=== PATIENT | female | born 1990 | race Caucasian/White ===

== ENCOUNTER 2022-05-17 11:38 | Emergency (ER) | payer BC, SELFPAY ==
[2022-05-17 11:43] VITALS: BP 154/101; PULSE 82; RESP 13; TEMP 36.9; O2SAT 98; BMI 36.6
--- NOTE | 2022-05-17 12:53 | ED_ITS ---
HPI - Headache General: Chief Complaint: Headache Stated Complaint: headache Time Seen by Provider: 05/17/22 12:53 History of Present Illness: 32-year-old female comes in today for complaints of a persistent headache on the right side of her head behind her right eye for the last 2 weeks. Patient reports last 2 days she has had worsening discomfort with nausea. Patient states that she has had no prior history of migraine headaches occasional headaches that have been controlled with [id number] medicines. Patient reports that acetaminophen PM has been the most effective f or her pain. Excedrin Migraine do not touch it this time. Patient recently gave about 8 months ago. Patient denies any chronic medical problems or routine medications. Patient appears nontoxic. Patient appears in mild to no pain. Associated symptoms: Reports nausea; Deny chest pain, fever(s), rash or vomiting Review of Systems Const: Denies: fever(s) Eyes: Reports: blurry vision (Right ); Denies: eye discomfort, eye discharge or eye redness ENMT: Denies: throat pain Card: Denies: chest pain Resp: Denies: dyspnea GI: Reports: nausea; Denies: vomiting, diarrhea or constipation : Denies: flank pain or difficulty voiding Musc: Denies: neck pain or back pain Skin/Breast: Denies: rash Neuro: Reports: headache(s); Denies: dizziness or vertigo Psych: Denies: depression [facility] ED PFSH: Social History (Updated 09/22/19 @ 11:55 by Norma Ramsay LPN) Smoking and tobacco status: never smoked Alcohol intake: never Adopted: No Physical Exam Const: COMMON NORMALS: alert HENMT: COMMON NORMALS: normocephalic HEAD & SCALP: normocephalic Eye: GENERAL EYE: appearance normal, both eyes and all related structures Neck/C-Spine: CERVICAL SPINE: Yes cervical ROM abnormal, No pain with cervical ROM, No Cervical spine tenderness, No Paracervical muscle tenderness and No Paracervical spasm Resp: COMMON NORMALS: normal respiratory effort and clear to auscultation bilaterally AUSCULTATION: clear to auscultation bilaterally Cardio: COMMON NORMALS: regular rate and regular rhythm RATE: regular rate RHYTHM: regular rhythm GI: COMMON NORMALS: Soft to palpation AUSCULTATION: Yes normoactive bowel sounds PALPATION: Yes Soft to palpation : COMMON NORMALS: Yes no CVA tenderness BLADDER/KIDNEY EXAM: Yes no CVA tenderness Back/Pelvis: COMMON NORMALS: no CVA tenderness and thoracic and lumbar spine normal to inspection Extremity: COMMON NORMALS: no pedal edema Neuro: SENSORIUM/ORIENTATION: Yes alert Skin: COMMON NORMALS: turgor normal GENERAL SKIN EXAM: turgor normal Course Vital Signs: Vital signs: Vital Signs Temperature 98.4 F 05/17/22 11:43 Pulse Rate 82 05/17/22 11:43 Respiratory Rate 13 05/17/22 11:43 Blood Pressure 154/101 05/17/22 11:43 Pulse Oximetry 98 05/17/22 11:43 Oxygen Delivery Me thod 05/17/22 11:43 MDM - Headache Medical Decision Making 32-year-old female comes in today with complaints of pain behind the right eye and headache for about 2 weeks. Patient reports some increasing discomfort over the last 2 days with nausea. Patient appears nontoxic. Respirations are even lungs are clear to auscultation. Remainder of exam is unremarkable. Vital sig ns are normal except for some mild elevation of blood pressure at 154/101. Differential diagnosis includes but not limited to migraine headache, classic headache, uncontrolled hypertension. CBC, CMP were unremarkable. hCG was negative. CT of the head noted some low-attenuation areas that may be seen with chronic ischemia, hypertension, diabetes, migraine headaches, and demyelinating disease. Recommendations were made for outpatient MRI. Patient was treated for migraine headache with Reglan, ketorolac, and dexamethasone with good results. Recommend neurology follow-up with return to the ER as needed for worsening symptoms or new concerns. Patient stated understanding and agreed to plan. Lab Data : 05/17/22 13:35 05/17/22 13:[address] 05/17/22 13:02 IMPRESSION: 1. No evidence of intracranial hemorrhage or mass effect. 2. 7 mm focus of low attenuation along the anterior limb LEFT internal capsule. This is nonspecific in a patient this age but can be seen with subacute or chronic ischemia, hypertension, diabetes, migraine headaches, or less likely demyelinating disease. This can be followed up with MRI 3. Additional suspected tiny focus of low-attenuation along the LEFT lopez radiata. 4. No other suspicious findings. Laboratory Results WBC 6.7 10^3/uL (4.0-10.0) 05/17/22 13:35 RBC 4.03 10^6/uL (4.1-5.3) L 05/17/22 13:35 Hgb 12.2 g/dL (11.5-15.3) 05/17/22 13:35 Hct 37.8 % (37.0-47.0) 05/17/22 13:35 MCV 93.8 fl (81-99) 05/17/22 13:35 MCH 30.3 pg (28.0-34.0) 05/17/22 13:35 MCHC 32.3 g/dL (30.0-36.0) 05/17/22 13:35 RDW 12.4 % (12.1-15.1) 05/17/22 13:35 Plt Count 297 10^3/cmm (130-400) 05/17/22 13:35 MPV 10.1 fL (7.4-10.4) 05/17/22 13:35 Neut % (Auto) 47.7 % 05/17/22 13:35 Lymph % (Auto) 38.5 % 05/17/22 13:35 Moca % (Auto) 10.1 % 05/17/22 13:35 Eos % (Auto) 2.8 % 05/17/22 13:35 Baso % (Auto) 0.3 % 05/17/22 13:35 Neut # (Auto) 3.21 10^3/uL (1.8-7.7) 05/17/22 13:35 Lymph # (Auto) 2.6 10^3/uL (0.8-4.8) 05/17/22 13:35 Moca # (Auto) 0.7 10^3/uL (0.2-0.9) 05/17/22 13:35 Eos # (Auto) 0.2 10^3/uL (0.0-0.8) 05/17/22 13:35 Baso # (Auto) 0.0 10^3/uL (0.0-0.1) 05/17/22 13:35 Nucleated RBC % (auto) 0 % 05/17/22 13:35 Nucleated RBCs # 0.0 /100WBC 05/17/22 13:35 Sodium 140 mmol/L (136-145) 05/17/22 13:35 Potassium 4.5 mmol/L (3.5-5.1) 05/17/22 13:35 Chloride 105 mmol/L (98-107) 05/17/22 13:35 Carbon Dioxide 23 mmol/L (22-29) 05/17/22 13:35 Anion Gap 16.5 (5-19) 05/17/22 13:35 BUN 12 mg/dL (6-20) 05/17/22 13:35 Creatinine 0.6 mg/dL (0.5-0.9) 05/17/22 13:35 GFR Calculation 116.6 mL/min (90-130) 05/17/22 13:35 Glucose 84 mg/dL (65-115) 05/17/22 13:35 Calculated Osmolality 289 mOsm/kg (285-295) 05/17/22 13:35 Calcium 9.5 mg/dL (8.5-10.5) 05/17/22 13:35 Total Bilirubin 0.2 mg/dL (0.15-1.2) 05/17/22 13:35 AST 21 U/L (0-32) 05/17/22 13:35 ALT 27 U/L (0-33) 05/17/22 13:35 Alkaline Phosphatase 124 U/L (35-105) H 05/17/22 13:35 Total Protein 8.2 g/dL (6.6-8.7) 05/17/22 13:35 Albumin 4.4 g/dL (3.5-5.2) 05/17/22 13:35 Globulin 3.8 g/dL (1.3-4.6) 05/17/22 13:35 HCG, Qual Negative (Negative) 05/17/22 13:35 Discharge Plan Discharge Patient Disposition: Home Clinical Impression: Abnormal CT of brain Headache Qualifiers: Headache type: unspecified Headache chronicity pattern: unspecified pattern Intractability: not intractable Qualified Code(s): R51.9 - Headache, unspecified Condition: Stable Prescriptions: No Action azithromycin 250 mg tablet See Rx Instructions PO .COMPLEX Qty: 6 0RF Rx Instructions: take 500 mg today (day 1), then 250 mg for 4 days (days 2-5) PO Discharge Orders: Discharge ED (Routine); Ordered 05/17/22 Ordered By: Osmani García Referrals: Flowers,Binh [Primary Care Provider] - Discharge Diet: Usual diet Discharge Activity: Increase activity as tolerated Patient Instructions: Headache Activity Restrictions/Additional Instructions: Home and rest. Drink plenty of fluids. Follow-up with primary care regarding your blood pressure. sales support manager will contact you regarding follow-up appoint with neurologist for further evaluation and treatment. Return to ER for worsening symptoms such as weakness, high fever, or new concerns. 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
--- NOTE | 2022-05-17 13:02 | CT_ITS ---
WS: [id number] CT HEAD TECHNIQUE: Noncontrast CT of the head obtained from the skullbase to the vertex. CLINICAL INFORMATION: new onset migraine COMPARISON: None. DLP: 1024.[address] scans at [facility] use at least one of these dose optimization techniques: automated e xposure control; mA and/or kV adjustment per patient size (includes targeted exams where dose is matc hed to clinical indication); or iterative reconstruction. FINDINGS: No evidence of intracranial hemorrhage or mass effect. 7 mm focus of low attenuation along the anteri or limb LEFT internal capsule. This is nonspecific in a patient this age but can be seen with subacut e or chronic ischemia, hypertension, diabetes, migraine headaches, or less likely demyelinating disea se. This can be followed up with MRI. Additional suspected tiny focus of low-attenuation along the LE FT lopez radiata. No extra-axial fluid collections. No evidence of mass or mass effect. Paranasal sinuses and mastoid air cells are well aerated. .Normal visualized soft tissues. CT/CT head wo con* [id number] IMPRESSION: 1. No evidence of intracranial hemorrhage or mass effect. 2. 7 mm focus of low attenuation along the anterior limb LEFT internal capsule . This is nonspecific in a patient this age but can be seen with subacute or ch ronic ischemia, hypertension, diabetes, migraine headaches, or less likely demy elinating disease. This can be followed up with MRI 3. Additional suspected tiny focus of low-attenuation along the LEFT lopez ra diata. 4. No other suspicious findings.
[2022-05-17 13:42] LABS: Basophils % 0.3 %; Eosinophils # 0.2 10^3/uL (0.0-0.8); Eosinophils % 2.8 %; Hematocrit 37.8 % (37.0-47.0); Hemoglobin 12.2 g/dL (11.5-15.3); Lymphocytes # 2.6 10^3/uL (0.8-4.8); Lymphocytes % 38.5 %; Mean Corpuscular HGB Conc 32.3 g/dL (30.0-36.0); Mean Corpuscular Hemoglobin 30.3 pg (28.0-34.0); Mean Corpuscular Volume 93.8 fl (81-99); Mean Platelet Volume 10.1 fL (7.4-10.4); Monocytes # 0.7 10^3/uL (0.2-0.9); Monocytes % 10.1 %; Neutrophils # 3.21 10^3/uL (1.8-7.7); Neutrophils % 47.7 %; Nucleated Red Blood Cells % 0 %; Platelet Count 297 10^3/cmm (130-400); Red Blood Count 4.03 10^6/uL (4.1-5.3); Red Cell Distribution Width 12.4 % (12.1-15.1); White Blood Count 6.7 10^3/uL (4.0-10.0)
[2022-05-17] MEDS: dexamethasone 10 mg/mL INJ IVP (14:04)
[2022-05-17 14:05] LABS: Alanine Aminotransferase 27 U/L (0-33); Albumin Level 4.4 g/dL (3.5-5.2); Alkaline Phosphatase 124 U/L (35-105); Anion Gap 16.5 (5-19); Aspartate Amino Transferase 21 U/L (0-32); Blood Urea Nitrogen 12 mg/dL (6-20); Calcium 9.5 mg/dL (8.5-10.5); Carbon Dioxide 23 mmol/L (22-29); Chloride 105 mmol/L (98-107); Globulin 3.8 g/dL (1.3-4.6); Glomerular Filtration Rate 116.6 mL/min (90-130); Glucose 84 mg/dL (65-115); HCG, Serum Qual Negative (Negative); Osmolality Calculated 289 mOsm/kg (285-295); Potassium 4.5 mmol/L (3.5-5.1); Sodium 140 mmol/L (136-145); Total Bilirubin 0.2 mg/dL (0.15-1.2); Total Protein 8.2 g/dL (6.6-8.7)
[2022-05-17] MEDS: metoclopramide 5 mg/mL SDV 2 mL 10 MG IVP (14:07)
[2022-05-17] MEDS: ketorolac 30 mg/mL INJ 15 MG IVP (14:07)
--- NOTE | 2022-05-19 08:38 | DCPLANNER ---
Addendum entered by Charline Bradley 07/23/22 09:49: Patient had a follow up appointment scheduled with neurology - patient did not attend appointment. Addendum entered by Charline Bradley 05/21/22 13:01: Patient has a follow up appointment scheduled for Tuesday, July 19, 2022 at 10:[address] Martin at neurology. Clinic will call patient with appointment information. Original Note: senior audit manager had message to schedule a follow up appointment for patient with neurology. senior audit manager sent patients information to the front office staff at neurology. Patients information will be printed and reviewed. Clinic will call patient with appointment information.
== END 2022-05-17 15:20 | disposition home or self-care (01) ==
PROVIDERS: Emergency Provider Nurse Practitioner Family; PCP Family Medicine
DX: R51.9 Headache, unspecified (principal); R93.0 Abnormal findings on diagnostic imaging of skull and head, not elsewhere classified
CPT/HCPCS: 70450; 80053; 84703; 85025; 96374; 96375; 99284; J1100; J1885; J2765

== ENCOUNTER 2022-10-25 09:58 | Outpatient (CLI) | payer BC, SELFPAY ==
[2022-10-25 11:51] LABS: Free T4 Free Thyroxine 0.91 ng/dL (0.82-1.77); Magnesium 2.1 mg/dL (1.7-2.3); T3 Free 2.8 PG/ML (2.0-4.4); Thyroid Stimulating Hormone 1.32 uIU/mL (0.27-4.20)
[2022-10-25 11:52] LABS: Folate Level 14.1 ng/mL (4.8-37.3)
[2022-10-25 13:14] LABS: 25 Hydroxy Vitamin D 23 ng/mL (30-100); Vitamin B12 456 pg/mL (232-1245)
[2022-10-26 10:39] LABS: CENTROMERE B ANTIBODY <1.0 NEG AI (<1.0 NEG); JO-1 ANTIBODY <1.0 NEG AI (<1.0 NEG); RNP ANTIBODY <1.0 NEG AI (<1.0 NEG); SCL-70 ANTIBODY <1.0 NEG AI (<1.0 NEG); SJOGREN'S ANTIBODY (SS-A) <1.0 NEG AI (<1.0 NEG); SM ANTIBODY <1.0 NEG AI (<1.0 NEG); SS-B <1.0 NEG AI (<1.0 NEG)
[2022-10-26 15:55] LABS: THYROID PEROXIDASE ANTIBODIES 2 IU/mL (<9)
[2022-10-27 10:45] LABS: Erythrocyte Sedimentation Rate 29 mm/hr (0-15)
[2022-10-27 12:04] LABS: COMPLEMENT COMPONENT C3C 176 mg/dL (83-193); COMPLEMENT COMPONENT C4C 17 mg/dL (15-57)
[2022-10-27 13:20] LABS: ANA SCREEN, IFA POSITIVE (NEGATIVE); COMPLEMENT, TOTAL (CH50) >60 U/mL (31-60)
[2022-10-27 13:24] LABS: ANA PATTERN Nuclear, Speckled
[2022-10-28 02:04] LABS: DNA AB (DS) CRITHIDIA,IFA NEGATIVE (NEGATIVE)
== END 2022-10-25 09:59 | disposition home or self-care (01) ==
PROVIDERS: PCP Nurse Practitioner Family; Visit Provider Psychiatry & Neurology Neurology
DX: R51.9 Headache, unspecified (principal)
CPT/HCPCS: 82306; 82607; 82746; 83735; 84439; 84443; 84481; 85651; 86140; 86160; 86162; 86235; 86255; 86376; 86431

== ENCOUNTER 2022-11-12 15:46 | Outpatient (CLI) | payer BC, SELFPAY ==
--- NOTE | 2022-11-12 16:00 | MR_ITS ---
WS: [id number] MRI ORBITS with and without CONTRAST. COMPARISON: CT head 05/17/2022. Multiplanar, multisequence imaging is performed with and without contrast. MultiHance 20 mL. History: Headache behind right eye for 6 months. Normal diffusion sequence. No acute infarct. No significant atrophy and no prior large territory infa rct. Several subcortical and periventricular white matter lesions are identified, greater than expect ed for patient's age. The subcortical lesions are small and predominantly frontal lobe distribution. Single focus of increased T2 and FLAIR signal anterior limb of the LEFT internal capsule was previous ly described by CT. No cerebellar signal abnormalities. Normal barrera. Ventricles are normal size. Pituitary gland is very small caliber but normal enhancement. No cerebell opontine angle mass. High-resolution imaging through the orbits and globes. No mass or signal abnormality. No evidence for optic neuritis. There is no mass effect upon the optic chiasm. No exophthalmus. No enhancing lesions within the brain. No signal abnormality or abnormal enhancement within the circl e of Rice. There is extensive mucoperiosteal thickening involving the sinuses. Greatest involvement in the maxil pool and sphenoid sinuses. There is extension of mucoperiosteal disease into the RIGHT frontal ethmoi d recess. Sphenoid sinuses demonstrate increased aeration extending laterally. Mild ethmoid air cell disease. Very mild effusions in the mastoid air cells. Calvarium is intact. MR/MR head orbits wo/w* [id number] IMPRESSION: 1. Negative MRI orbits and globes. No evidence for optic neuritis or mass. 2. Increased T2 and FLAIR signal in the white matter with the largest area inv olving the LEFT anterior limb LEFT internal capsule. As on the prior CT the dif ferential does include prior ischemic event, migraines, hypertension and diabet es. Less likely demyelination. The amount of white matter disease is more than expected for a patient this age. 3. No enhancing masses. 4. No atrophy. 5. Pansinusitis. Most significant involvement of the ethmoid and sphenoid sinu ses.
[2022-11-12] MEDS: gadobenate dimeglumine 20 mL vial IV (16:45)
== END 2022-11-12 15:47 | disposition home or self-care (01) ==
PROVIDERS: PCP Nurse Practitioner Family; Visit Provider Psychiatry & Neurology Neurology
DX: R51.9 Headache, unspecified (principal); J32.4 Chronic pansinusitis
CPT/HCPCS: 70543; 70553; A9577